=== PATIENT | male | born 1965 | race Caucasian/White ===

== ENCOUNTER 2017-06-18 22:22 | Emergency (ER) | payer OTHER ==
[2017-06-18 22:49] VITALS: BP 123/85; PULSE 62; TEMP 97.7; BMI 23.1
[2017-06-18] MEDS ORDERED: morphine CARPU-JECT 2 MG/1 ML DISP.SYRIN IVPUSH ONE (23:11)
[2017-06-18] MEDS ORDERED: DIPHTH,PERTUSS(ACELL),TET 0.5 ML DISP.SYRIN IM ONE (23:14)
[2017-06-18] MEDS ORDERED: ceFAZolin 2 GRAM PREMIX BAG IVPB ONE (23:14)
[2017-06-18] MEDS ORDERED: morphine SULFATE 4 MG/ML VIAL ONE (23:20)
[2017-06-18] MEDS ORDERED: CEFAZOLIN 1 GM/D5W 2 GM/100 ML BAG ONE (23:20)
[2017-06-18] MEDS ORDERED: CEFAZOLIN 2 GM/D5W 2 GM/50 ML ML IVPB ONE (23:30)
--- NOTE | 2017-06-18 23:49 | PDOC ---
History of Present Illness - General Chief Complaint: Injury Stated Complaint: Lacerated wound Time Seen by Provider: 06/18/17 23:00 - History of Present Illness Initial Comments: 06/18/17 23:48 CHIEF COMPLAINT: drill to finger HISTORY OF PRESENT ILLNESS: 52 yo M with hx of thyroid cancer s/p thyroidectomy presents to ED s/p drill injury to left index and third fingers. Patient is unsure when his last tetanus shot was. No recent travel or sick contacts. PAST MEDICAL HISTORY: thyroidectomy FAMILY HISTORY: Denies SOCIAL HISTORY: Denies tobacco, alcohol, illicit drug use. ALLERGIES: No known drug allergies REVIEW OF SYSTEMS General/Constitutional: Denies fever or chills. Cardiovascular: Denies chest pain, palpitations. Gastrointestinal: Denies nausea, vomiting, diarrhea. Musculoskeletal: Pain to L index and third finger. Skin: "I drilled my hand." PHYSICAL EXAM General Appearance: Well-appearing, appropriately dressed. No apparent distress. HEENT: EOMI, PERRLA, normal ENT inspection, normal voice. No conjunctival pallor. No photophobia, scleral icterus. Respiratory/Chest: Lungs CTAB. Cardiovascular: RRR. S1, S2. Musculoskeletal/Extremities: Laceration to dorsal aspect of L index and third fingers, bony exposure to L index finger. Full ROM to both fingers, sensory discrimination intact. Normal inspection. FROM of all extremities, normal capillary refill. Pelvis Stable. No CVA tenderness. No tenderness to extremities, pedal edema, swelling, erythema or deformity. Integumentary: Appropriate color, dry, warm. No cyanosis, erythema, jaundice or rash Neurologic: cytogenetic technologist II-XII intact. Fully oriented, alert. Appropriate mood/affect. Motor strength 5/5. No appreciable EOM palsy, facial droop or sensory deficit. Past History - Past Medical History Allergies/Adverse Reactions: Allergies Allergy/AdvReac Type Severity Reaction Status Date / Time No Known Allergies Allergy Verified 06/18/17 22:39 Home Medications: Ambulatory Orders Levothyroxine [Synthroid -] 125 mcg PO DAILY 06/27/13 Cephalexin [Keflex] 500 mg PO QID #20 capsule 06/19/17 COPD: No Thyroid Disease: Yes - Immunization History Td Vaccination: No TDAP Vaccination: No Immunization Up to Date: No - Suicide/Smoking/Psychosocial Hx Smoking History: Never smoked Have you smoked in the past 12 months: No Information on smoking cessation initiated: No Hx Alcohol Use: Yes Drug/Substance Use Hx: No Substance Use Type: None *Physical Exam - Vital Signs Last Vital Signs Temp Pulse Resp BP Pulse Ox 97.7 F 62 19 123/85 99 06/18/17 22:30 06/18/17 22:30 06/18/17 22:30 06/18/17 22:30 06/18/17 22:30 Procedures - Consent Consent obtained: Verbal - Laceration/Wound Repair Left Dorsal Finger 2nd digit Wound Length: to 2.5 cm Wound Explored: clean Wound's Depth, Shape: linear, irregular Irrigated w/ Saline: Yes Betadine Prep: Yes Anesthesia: 1% Lidocaine Amount of Anesthetic (ccs): 5 Wound Repaired With: Sutures Suture Size/Type: 5:0 Number of Sutures: 5 Layer Closure: No Sterile Dressing Applied: Yes (xeroform dressing, tube gauze) Splint Applied: No Left Dorsal Finger 3rd digit Wound Length: to 2.5 cm Wound Explored: clean Wound's Depth, Shape: flap Irrigated w/ Saline: Yes Betadine Prep: Yes Wound Repaired With: Dermabond ED Treatment Course - RADIOLOGY Radiology Studies Ordered: Category Date Time Status HAND- LEFT [RAD] Stat Radiology 06/18/17 23:05 Ordered Medical Decision Making - Medical Decision Making 06/19/17 00:28 52 yo M with no significant PMH presents to ED s/p drill injury to left index and third fingers. -TDap -X-ray -2g Ancef IV -morphine for pain X-ray negative for fracture. Laceration repair (see procedure note). Edges well approximated. No tendon involvement, sensory discrimination intact. -keflex po qid for prophylaxis Advised patient to take medication as prescribed and of post lac repair instructions. Advised patient of signs and symptoms for return to ED. Patient verbalized understanding and agrees to plan. 06/19/17 01:51 *DC/Admit/Observation/Transfer Diagnosis at time of Disposition: Laceration - Discharge Dispostion Disposition: HOME Condition at time of disposition: Stable Admit: No - Prescriptions Prescriptions: Cephalexin [Keflex] 500 mg PO QID #20 capsule - Referrals Referrals: STAFF,NOT ON [Primary Care Provider] - - Patient Instructions Printed Discharge Instructions: DI for Laceration Repair -- Simple, DI for Laceration Repair With Dermabond, DI for Laceration Repair -- Finger Additional Instructions: Please take medications as prescribed and complete the entire course of antibiotics. Please keep your finger clean and dry for 24 hours. Afterwards, you may wash with mild soap and water. You may apply bacitracin to the wound for 1-2 days; afterwards please keep it open to air for healing. Please return in 10-14 days for suture removal, or you may return to your primary care doctor for suture removal. As discussed, if you develop any redness, swelling, warmth, or streaking to your hand, or you develop fever, chills, nausea, vomiting, diarrhea, or any new or worsening symptoms, please return to the ER immediately. - Post Discharge Activity
[2017-06-19] MEDS ORDERED: LIDOCAINE HCL 2% (20ML MULTI-DOSE VIAL) NR ONE (00:43)
== END 2017-06-19 01:41 | disposition home or self-care (01) ==
LOC: SUPCPDRO 22:22 → JER 22:22
PROC: 3E0234Z Introduction of Serum, Toxoid and Vaccine into Muscle, Percutaneous Approach (ICD-10-PCS; principal; 2017-06-18)
PROC: 3E03329 Introduction of Other Anti-infective into Peripheral Vein, Percutaneous Approach (ICD-10-PCS; 2017-06-18)
PROC: 3E033NZ Introduction of Analgesics, Hypnotics, Sedatives into Peripheral Vein, Percutaneous Approach (ICD-10-PCS; 2017-06-18)
DX: S61.218A Laceration without foreign body of other finger without damage to nail, initial encounter (principal); W29.8XXA Contact with other powered hand tools and household machinery, initial encounter; Y93.89 Activity, other specified; Y92.018 Other place in single-family (private) house as the place of occurrence of the external cause; Y99.8 Other external cause status
CPT/HCPCS: 73130-TC-LT; 90715; 99283-25